=== PATIENT | male | born 1995 | race Two or more races ===

== ENCOUNTER 2022-03-16 17:32 | Emergency (ER) | payer OTHER, SELFPAY ==
--- NOTE | ~2022-03-16 | XR_ITS ---
EXAMINATION: XR CHEST CLINICAL INFORMATION: Cough COMPARISON: None TECHNIQUE: 2 views of the chest were obtained. FINDINGS: The lungs appear hyperinflated which may be due to excellent inspiratory effort. No significant abnormality is noted involving the heart, lungs, mediastinum, bony thorax or soft tissues. XR/XR chest 2V IMPRESSION: No acute intrathoracic disease.
[2022-03-16 17:38] VITALS: BP 124/75; PULSE 73; RESP 20; TEMP 36.4; O2SAT 96; BMI 21.5
--- NOTE | 2022-03-16 17:40 | ED.URI ---
HPI - URI/Sore Throat General Chief Complaint: Upper Respiratory Symptoms <Hailey Bashir NP - Last Filed: 03/16/22 17:40> Stated Complaint: Flu like Symptoms <Hailey Bashir NP - Last Filed: 03/16/22 17:40> Time Seen by Provider: 03/16/22 19:00 <Hailey Bashir NP - Last Filed: 03/16/22 17:40> Source: patient <Faiza Bocanegra MD - Last Filed: 03/16/22 22:34> Mode of arrival: ambulatory <Faiza Bocanegra MD - Last Filed: 03/16/22 22:34> Limitations: no limitations <Faiza Bocanegra MD - Last Filed: 03/16/22 22:34> History of Present Illness HPI Narrative: [age] year male presented with 3 days of body aches, coughing with yellow phlegm, chills, sore throat, family member had flu for a week. <Faiza Bocanegra MD - Last Filed: 03/16/22 22:34> Related Data Home Medications: Previous Rx's Medication Instructions Recorded albuterol sulfate 90 mcg/actuation 1 inh inhalation QID PRN shortness 03/16/22 aerosol inhaler of breath or wheezing #8.5 grams azithromycin 250 mg tablet See Rx Instructions PO .COMPLEX #6 03/16/22 (Zithromax Z-Jonny) tabs guaifenesin 100 mg/5 mL oral 200 mg (10 mL) PO Q6H PRN cough 03/16/22 liquid (Mucinex Fast-Max Chest #1,500 mL Congestion) prednisone 20 mg tablet 20 mg PO BID #10 tabs 03/16/22 <Hailey Bashir NP - Last Filed: 03/16/22 17:40> Allergies/Adverse Reactions: Allergies Allergy/AdvReac Type Severity Reaction Status Date / Time No Known Allergies Allergy Unverified 12/19/19 16:42 [No Known Allergies*] <Hailey Bashir NP - Last Filed: 03/16/22 17:40> Review of Systems Review of Systems: All other systems are reviewed and are negative Constitutional: Reports as per HPI and Reports no additional constitutional complaints Eyes: Reports as per HPI and Reports no additional eye complaints Reports system reviewed and no additional complaints, except as documented Cardiovascular: Reports as per HPI and Reports no additional cardiovascular complaints Respiratory: Reports as per HPI and Reports no additional respiratory complaints Gastrointestinal: Reports as per HPI and Reports no additional gastrointestinal complaints Genitourinary: Reports no additional female genitourinary complaints Musculoskeletal: Reports no additional musculoskeletal complaints Skin/Breast: Reports system reviewed and no additional complaints, except as docu Psychiatric: Reports no additional psychiatric complaints Endocrine: Reports no additional endocrine complaints Hematologic/Lymphatic: Reports no additional hematologic/lymphatic complaints Allergic/Immunologic: Reports no additional allergic/immunologic complaints Reports system reviewed and no additional complaints, except as documented and Reports Abnormal speech present <Faiza Bcoanegra MD - Last Filed: 03/16/22 22:34> [facility] Social History Social History: Social History Advance Directives: No Advance Directives Information Provided: No <Hailey Bashir NP - Last Filed: 03/16/22 17:40> Physical Exam Vital Signs: Vital Signs: Last Vital Signs Temp 98.6 F 03/16/22 19:03 Pulse 68 03/16/22 19:03 Resp 16 03/16/22 19:03 BP 116/65 03/16/22 19:03 Pulse Ox 100 03/16/22 19:03 O2 Del Method 03/16/22 19:03 BMI result Body Mass Index 21.5 <Hailey Bashir NP - Last Filed: 03/16/22 17:40> Vital Signs: Last Vital Signs Temp 98.6 F 03/16/22 19:03 Pulse 68 03/16/22 19:03 Resp 16 03/16/22 19:03 BP 116/65 03/16/22 19:03 Pulse Ox 100 03/16/22 19:03 O2 Del Method 03/16/22 19:03 BMI result Body Mass Index 21.5 Vital signs have been reviewed as appeared to be correct. Blood pressure normal. Heart rate normal. Respiration rate normal. Temperature normal. Oxygen saturation normal. <Faiza Bocanegra MD - Last Filed: 03/16/22 22:34> Appearance: Alert. Oriented X3. No acute distress. Head: Normal external exam. Normocephalic. Atraumatic. No Dawn signs noted. No raccoon eyes noted Eyes: PERRLA. EOMI. Conjunctiva and sclera normal. Eyelids normal. ENT: TM's Normal. Pharynx normal. Uvula midline. Moist mucous membranes. No trismus noted. No drooling noted. No muffled voice noted. Neck: Normal inspection. Neck supple. FROM. No adenopathy. Thyroid Normal. No meningeal signs. No neck mass noted. CVS: Normal heart rate and rhythm. Heart sound normal. No murmurs noted. Pulses normal throughout. Respiratory: No respiratory distress. Painless inspiration. Breath sounds normal. No wheezes/rales/rhonchi noted. Chest nontender. No accessory muscle usage noted or decreased air movement noted. Abdomen: Soft and nontender. Bowel sounds normal in all 4 quadrants. No distention noted. No organomegaly noted. No visible injury noted. Back: No CVA tenderness. Full range of motion noted. Skin: Skin warm and dry. Normal skin color. Normal skin turgor. No rashes/lesions/lacerations noted. Extremities: No lower extremity edema. Extremities exhibit normal range of motion. Extremities nontender. Neuro: Oriented X 3. Cranial nerve exam: II-XII are grossly intact No motor deficit. No sensory deficit. Reflexes normal. <Faiza Bocanegra MD - Last Filed: 03/16/22 22:34> Course Course Course Narrative: This is a rapid medical exam. Deferred additional HPI, ROS and PE 2 primary provider. 27-year-old male healthy here with 1 week of cough and congestion. Vitals are stable. Will send testing for flu, COVID, RSV <Hailey Bashir NP - Last Filed: 03/16/22 17:40> Reevaluation(s) Reevaluation #1: Acute bronchitis start the patient on Z-Jonny/prednisone/bronchodilator/Mucinex/and discharged. <Faiza Bocanegra MD - Last Filed: 03/16/22 22:34> Time: 22:34 <Faiza Bocanegra MD - Last Filed: 03/16/22 22:34> Medical Decision Making Lab Data Labs: Lab Results 03/16/22 03/16/22 Range/Units 18:56 20:54 Influenza Type A (PCR) NEGATIVE (Negative) Influenza Type B (PCR) NEGATIVE (Negative) RSV RNA Qual (PCR) NEGATIVE (Negative) SARS-CoV-2 RNA (RT-PCR) NEGATIVE (Negative) S. pyogenes GrpA FLAKITO Invalid (Negative) <Hailey Bashir NP - Last Filed: 03/16/22 17:40> Lab Results 03/16/22 03/16/22 Range/Units 18:56 20:54 Influenza Type A (PCR) NEGATIVE (Negative) Influenza Type B (PCR) NEGATIVE (Negative) RSV RNA Qual (PCR) NEGATIVE (Negative) SARS-CoV-2 RNA (RT-PCR) NEGATIVE (Negative) S. pyogenes GrpA FLAKITO Invalid (Negative) <Faiza Bocanegra MD - Last Filed: 03/16/22 22:34> Discharge Plan Discharge Clinical Impression: Bronchitis <Hailey Bashir NP - Last Filed: 03/16/22 17:40> Patient Disposition: Home, Self-Care <Hailey Bashir NP - Last Filed: 03/16/22 17:40> Instructions: Acute Bronchitis (ED) <Hailey Bashir NP - Last Filed: 03/16/22 17:40> Prescriptions: New azithromycin [Zithromax Z-Jonny] 250 mg tablet See Rx Instructions .ROUTE .COMPLEX Qty: 6 0RF Rx Instructions: For 250 mg dose pack: take 500 mg today (day 1), then 250 mg for 4 days (days 2-5) prednisone 20 mg tablet 20 mg PO BID Qty: 10 0RF albuterol sulfate 90 mcg/actuation HFA aerosol inhaler 1 inh inhalation QID PRN (Reason: shortness of breath or wheezing) Qty: 8.5 0RF guaifenesin [Mucinex Fast-Max Chest-Congest] 100 mg/5 mL liquid 200 mg PO Q6H PRN (Reason: cough) Qty: 1500 0RF <Hailey Bashir NP - Last Filed: 03/16/22 17:40> Stand Alone Forms: Work/School Release <Hailey Bashir NP - Last Filed: 03/16/22 17:40>
[2022-03-16 19:01] VITALS: RESP 16
[2022-03-16 19:03] VITALS: BP 116/65; PULSE 68; RESP 16; TEMP 37; O2SAT 100
[2022-03-16 19:37] LABS: Influenza A PCR NEGATIVE (Negative); Influenza B PCR NEGATIVE (Negative); Resp Syncy Virus RNA Qual PCR NEGATIVE (Negative); SARS COV2 PCR INHOUSE NEGATIVE (Negative)
[2022-03-16 21:08] LABS: Strep A Nucleic Acid Invalid (Negative)
[2022-03-16 23:06] LABS: Strep A Nucleic Acid Negative (Negative)
== END 2022-03-16 23:15 | disposition home or self-care (01) ==
PROVIDERS: Emergency Provider Emergency Medicine
DX: J40 Bronchitis, not specified as acute or chronic (principal); Z20.822 Contact with and (suspected) exposure to COVID-19
CPT/HCPCS: 0241U; 36415; 71046; 87651; 99282; 99283